=== PATIENT | male | born 1955 | race Caucasian/White ===

== ENCOUNTER → 2019-12-31 | Outpatient (CLI) | payer MEDICAID ==
--- NOTE | 2019-12-31 13:53 | US ---
EXAMINATION TYPE: US thyroid st tissue head/neck DATE OF EXAM: 12/31/2019 COMPARISON: NONE CLINICAL HISTORY: E04.1 Single thyroid nodule. Left thyroid nodule GLAND SIZE: Right Lobe: 5.8 x 2.2 x 1.9 cm Overall Parenchyma: homogenous Left Lobe: 6.5 x 2.0 x 1.7 cm Overall Parenchyma: homogeneous Isthmus Thickness: 0.3 cm NODULES RIGHT: # of nodules measured on right: 0 LEFT: # of nodules measured on left: 1 1. 2.2 X 1.8 x 2.2 cm hypoechoic mixed nodule at the lower pole with well-defined margins; with rob cification. This nodule is wider than tall and shows intranodular vascularity. Prior size: No previous ISTHMUS: # of nodules measured in the isthmus: 0 Bilateral neck scanned, no evidence of lymphadenopathy. IMPRESSION: Thyromegaly with a dominant 2.2 cm left thyroid nodule
== END | disposition home or self-care (01) ==
LOC: RADUSWWP 13:26
PROVIDERS: ATTEND Family Medicine
DX: E04.1 Nontoxic single thyroid nodule (principal)
CPT/HCPCS: 76536

== ENCOUNTER → 2020-01-05 | Outpatient (CLI) | payer MEDICAID | END | disposition home or self-care (01) | LOC: LABWHC1 12:21 | PROVIDERS: ATTEND Internal Medicine Gastroenterology | DX: Z11.59 Encounter for screening for other viral diseases (principal) ==

== ENCOUNTER 2020-01-07 08:16 | Day surgery (SDC) | payer MEDICAID ==
[2020-01-05 10:24] VITALS: BMI 29.8
[~2020-01-07 08:16] MED LIST: LACTATED RINGERS 1,000 ML IV SCH
[2020-01-07 08:49] VITALS: RESP 16; TEMP 97.6
[2020-01-07] MEDS ORDERED: LIDOCAINE 1% (10MG/ML) FOR IV START INTRADERMA ONE (08:50)
[2020-01-07] MEDS ORDERED: PROPOFOL 10 MG/ML 20 ML VIAL IV ONE (09:07)
[2020-01-07] MEDS ORDERED: LIDOCAINE 1% INJ 10MG/ML (20 ML MDV) ONE (09:07)
--- NOTE | 2020-01-07 09:27 | P.PCN ---
Date of Procedure: 01/07/20 Procedure(s) Performed: BRIEF HISTORY: Patient is a 64-year-old pleasant [] scheduled for an elective colonoscopy as a part of screening for colorectal neoplasia. His strong family history of colon cancer diagnosed in his father, paternal uncle and paternal grandfather in his 60s. PROCEDURE PERFORMED: Colonoscopy. PREOPERATIVE DIAGNOSIS: Screening for colon cancer and strong family history of colon cancer. IV sedation per Anesthesia. PROCEDURE: After informed consent was obtained, the patient, was brought into the endoscopy unit. IV sedation was administered by Anesthesia under continuous monitoring. Digital rectal examination was normal. Initially the Olympus CF-160 flexible video colonoscope was then inserted in the rectum, gradually advanced into the cecum without any difficulty. Careful examination was performed as the scope was gradually being withdrawn. Ileocecal valve and the appendiceal orifice were visualized and appeared normal. Prep was excellent. In the cecum there was a 1 cm flat polyp removed by snare polypectomy. In the ascending colon there was a 7 mm flat polyp removed by snare polypectomy. There was a 5 mm descending colon polyp status post polypectomy. Rest of the mucosa of the cecum, ascending colon, transverse colon, descending colon, sigmoid colon, and rectum appeared normal. Retroflexion was performed in the rectum and small internal were seen. The patient tolerated the procedure well. IMPRESSION: 1 cm flat cecal polyp status post polypectomy 7 mm flat ascending colon polyp status post snare polypectomy 5 mm descending colon polyp status post polypectomy Small internal hemorrhoids RECOMMENDATIONS: Findings of this examination were discussed with the patient as well as his family. He was advised to follow with the biopsy results. If the biopsy shows an adenoma he can have a repeat colonoscopy in 3 years.
[2020-01-07 09:56] VITALS: BP 125/63; PULSE 61
== END 2020-01-07 10:21 | disposition home or self-care (01) ==
LOC: ORWHC2ENDO 08:16
PROVIDERS: ATTEND Internal Medicine Gastroenterology
DX: Z12.11 Encounter for screening for malignant neoplasm of colon (principal); D12.0 Benign neoplasm of cecum; D12.2 Benign neoplasm of ascending colon; D12.4 Benign neoplasm of descending colon; K64.8 Other hemorrhoids; Z86.010 Personal history of colon polyps; Z80.0 Family history of malignant neoplasm of digestive organs; H46.9 Unspecified optic neuritis; K21.9 Gastro-esophageal reflux disease without esophagitis; G35 Multiple sclerosis; F41.9 Anxiety disorder, unspecified; F32.9 Major depressive disorder, single episode, unspecified; Z79.899 Other long term (current) drug therapy
CPT/HCPCS: 88305; 45385; J2001; J2704

== ENCOUNTER → 2020-05-27 | Outpatient (CLI) | payer MEDICAID ==
--- NOTE | 2020-05-31 09:27 | MR ---
EXAMINATION TYPE: MR brain/cspine wo/w DATE OF EXAM: 05/27/2020 COMPARISON: Outside MRI brain July 17, 2016. HISTORY: Multiple sclerosis follow-up TECHNIQUE: Multiplanar, multisequence images of the brain and brainstem is performed without and with IV contras t, utilizing 9 mL intravenous Gadavist gadolinium contrast is administered intravenously. Demyelinat ing disease protocol with additional Sagittal Flair sequence performed of the brain and brainstem and PD sagittal sequence cervical spine.. FINDINGS: BRAIN: T2 Lesions Present : Yes Approximate Number of Lesions: Approximately 15 scattered Locations Identified : Scattered, callosal involvement redemonstrated sagittal image 20 Size of Reference Lesion(s): 1. Large contiguous right frontal lesion axial images 23 and 24 and sagittal image 25 measures approx imately 1.3 x 1.3 x 1.3 cm stable from prior. 2. there is 1.0 x 0.8 x 1.3 cm left frontal parietal periventricular lesion axial image 21 and sagitt al image 13 stable from prior Enhancing Lesion(s) Present: No T1 Hypointense Lesion(s) Present: Yes Change from Prior: Stable Diffusion weighted images demonstrate no evidence of a recent infarct or other diffusion abnormality. There is no worrisome extra-axial fluid collection. The ventricular system and cisternal spaces ar e normal in size and appearance. The brain volume is age appropriate. Midline structures demonstrate normal morphology. The craniocervical junction appears within normal limits. Post contrast images demonstrate no abnormal enhancement. The dural venous sinuses appear pa tent. Artifact distortion near level of the globes and nose. Paranasal sinuses grossly clear. IMPRESSION: Moderate white matter changes likely on basis of known multiple sclerosis. No significant interval change. No new or enhancing lesions seen. C-SPINE: FINDINGS: Sagittal images of the cervical spine show the craniocervical junction to appear within nor mal limits. The cervical and upper thoracic spinal cord is normal in caliber and courser. There is f aint T2 hyperintense lesion measuring roughly 10 mm craniocaudal dimension running from superior to m id C4 level through the C4-C5 disc space sagittal image 6. No enhancing lesions are present. Slight g rade 1 anterolisthesis C6 on C7. The vertebral body heights are normal. Mild to moderate disc space narrowing with vacuum disc phenomenon and spurring C6-C7 level. Additional mild/moderate multilevel a nterior spurring mid cervical spine. The bone marrow signal intensity is within normal limits. No karthikeyan picious postcontrast enhancement. Axial images show C2-C3 level to appear within normal limits. Axial images at C3-C4 level shows small broad-based left paracentral disc protrusion mildly effacing the anterior thecal sac along with uncovertebral facet degenerative changes causing asymmetric mild r ight-sided neural foraminal narrowing. Axial images at C4-C5 level show focal right upper central disc protrusion effacing anterior thecal s ac, there are uncovertebral facet degenerative changes causing mild right greater than left bilateral neural foraminal narrowing. Axial images at C5-C6 level shows central disc protrusion effacing the anterior thecal sac, patent bi lateral neural foramina. Axial images at C6-C7 level showed lobulated broad-based posterior disc protrusion effacing the anter ior thecal sac and causing mild bilateral neural foraminal narrowing. Axial images at C7-T1 level show focal right paracentral disc protrusion effacing anterolateral theca l sac, patent bilateral neural foramina. There is abnormal left lateral cord lesion C4-C5 disc space axial image 34 for reference. Lesion deanna ures 3 to 4 mm transversely. IMPRESSION: Cervical spinal cord demyelinating disease involvement is present. No enhancing lesions. Multilevel degenerative changes greatest C6-C7 level as detailed above.
== END | disposition home or self-care (01) ==
LOC: RADMRIMAIN 10:23
PROVIDERS: ATTEND Psychiatry & Neurology Neurology
DX: G35 Multiple sclerosis (principal); G37.8 Other specified demyelinating diseases of central nervous system
CPT/HCPCS: 70553; 72156; A9585

== ENCOUNTER → 2021-11-16 | Outpatient (CLI) | payer MEDICAID ==
--- NOTE | 2021-11-16 16:58 | US ---
EXAMINATION TYPE: US thyroid st tissue head/neck DATE OF EXAM: 11/16/2021 COMPARISON: NONE CLINICAL HISTORY: E04.1 THYROID NODULE. left thyroid nodule GLAND SIZE: Right Lobe: 6.2 x 2.3 x 2.5 cm Overall Parenchyma: homogenous Left Lobe: 6.3 x 2.3 x 2.2 cm Overall Parenchyma: homogeneous Isthmus Thickness: 0.4 cm NODULES RIGHT: # of nodules measured on right: 0 LEFT: # of nodules measured on left: 1 1. 2.5 X 2.0 x 1.9 cm, lower , mixed cystic and solid, isoechoic nodule, which is wider than tall, with smooth margins, with echogenic foci. Prior size: 2.2 x 1.8 x 2.2 cm ISTHMUS: # of nodules measured in the isthmus: 0 Bilateral neck scanned, no evidence of lymphadenopathy. Right lobe of thyroid gland shows homogenous echotexture. IMPRESSION: Mildly suspicious, consider fine-needle aspiration biopsy of left lobe thyroid nodule 2017 ACR TI-RADS LEVEL: TR 3 *Highest TI-RADS level nodule reported
== END | disposition home or self-care (01) ==
LOC: RADUSWWP 16:06
PROVIDERS: ATTEND Otolaryngology
DX: E04.1 Nontoxic single thyroid nodule (principal)
CPT/HCPCS: 76536

== ENCOUNTER 2022-05-12 05:46 | Day surgery (SDC) | payer MEDICAID ==
[2022-05-10 16:09] VITALS: BMI 28.5
[2022-05-12] MEDS ORDERED: DEXAMETHASONE SOD PHOSPHATE 4 MG/ML 1 ML VIAL IV ONE (05:50)
[2022-05-12] MEDS ORDERED: MIDAZOLAM 2 MG/2 ML VIAL IV PRN (05:50)
[2022-05-12] MEDS ORDERED: ONDANSETRON 4 MG/2 ML VIAL IVP ONE (05:50)
[2022-05-12] MEDS ORDERED: LACTATED RINGERS 1,000 ML IV SCH (05:50)
[2022-05-12] MEDS ORDERED: LACTATED RINGERS 1,000 ML IV ONE ×2 (06:33→10:31)
[2022-05-12] MEDS ORDERED: ONDANSETRON 4 MG/2 ML VIAL ONE (06:39)
[2022-05-12] MEDS ORDERED: MIDAZOLAM 2 MG/2 ML VIAL IVP ONE (06:55)
[2022-05-12 06:59] VITALS: RESP 16; TEMP 97.4
[2022-05-12] MEDS ORDERED: HYDROmorphone 0.5 MG/0.5 ML SYRINGE IVP PRN (07:00)
[2022-05-12] MEDS ORDERED: ceFAZolin 1,000 MG in SODIUM CHLORIDE 0.9% 1,000 ML IRRIGATION ONE ×4 (07:28)
[2022-05-12] MEDS ORDERED: PROPOFOL 10 MG/ML 20 ML VIAL IV ONE (07:28)
[2022-05-12] MEDS ORDERED: LIDOCAINE 2% INJ 20 MG/ML (2 ML VIAL) ONE (07:28)
[2022-05-12] MEDS ORDERED: SODIUM CHLORIDE 0.9% (PF) 10 ML VIAL ONE (07:28)
[2022-05-12] MEDS ORDERED: PHENYLEPHRINE-0.9% NACL SYG 1,000 MCG/10 ML SYRINGE ONE (07:28)
[2022-05-12] MEDS ORDERED: fentaNYL (PF) 50 MCG/ML 2 ML AMP ONE (07:28)
[2022-05-12] MEDS ORDERED: ROPIVACAINE 5 MG/ML 30 ML VIAL ONE (07:28)
[2022-05-12] MEDS ORDERED: ePHEDrine 50 MG/ML 1 ML VIAL ONE (07:28)
--- NOTE | 2022-05-12 09:42 | XR ---
Fluoroscopy INDICATION: Pain FINDINGS: Fluoroscopy time: Not Reported seconds. Images obtained: 4. IMPRESSIONS: 1. Documentation of fluoroscopy.
--- NOTE | 2022-05-12 09:54 | FL ---
Fluoroscopy INDICATION: Pain FINDINGS: Fluoroscopy time: 41 seconds. Images obtained: 0. IMPRESSIONS: 1. Documentation of fluoroscopy.
--- NOTE | 2022-05-12 11:01 | P.ANPRN ---
Procedure Note - Anesthesia - Nerve Block Performed Left Adductor Canal Time Out Performed: Yes (06:55) Date of Procedure: 05/12/22 Procedure Start Time: :55 Procedure Stop Time: 07:04 Location of Patient: PreOp Indication: Acute Post-Operative Pain, Requested by Surgeon (Dr Gregorio) Sedation Type: Sedate with meaningful contact maintained Preparation: Sterile Prep Position: Supine Catheter: None Needle Types: Pajunk Needle Gauge: 21 Ultrasound used to visualize needle placement: Yes Ultrasound used to observe medication spread: Yes Injectate: 0.5% Ropivacaine (see comment for volume) (15cc +5cc PF Normal saline) Blood Aspirated: No Pain Paresthesia on Injection Noted: No Resistance on Injection: Normal Image Stored and Saved: Yes Events: Uneventful and Well Tolerated
--- NOTE | 2022-05-12 11:09 | P.ANPRN ---
Procedure Note - Anesthesia - Nerve Block Performed Left Popliteal Time Out Performed: Yes Date of Procedure: 05/12/22 Procedure Start Time: 07:05 Procedure Stop Time: 07:11 Location of Patient: PreOp Indication: Acute Post-Operative Pain, Requested by Surgeon (DR Gregorio) Sedation Type: Sedate with meaningful contact maintained Preparation: Sterile Prep Position: Right Lateral Catheter: None Needle Types: Pajunk Needle Gauge: 21 Ultrasound used to visualize needle placement: Yes Ultrasound used to observe medication spread: Yes Injectate: 0.5% Ropivacaine (see comment for volume) (15cc +5cc PF Normal saline) Blood Aspirated: No Pain Paresthesia on Injection Noted: No Resistance on Injection: Normal Image Stored and Saved: Yes Events: Uneventful and Well Tolerated
[2022-05-12 12:06] VITALS: BP 120/80; PULSE 71
--- NOTE | 2022-05-12 15:31 | P.OP ---
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 The patient was brought into the operating room and placed on table supine position. Timeout was taken to confirm correct patient identifiers, correct laterality of surgery, and correct procedure. When all staff in the room were in agreement with the timeout, the patient was induced placed under general anesthesia. A well-padded tourniquet was placed on the left thigh. A pad was placed underneath the left hip to internally rotate the left leg and then a wedge underneath the left leg elevated. The left leg was then prepped and draped usual manner. The leg was exsanguinated and the tourniquet inflated to 250 mmHg. Attention was directed over the lateral aspect of the ankle where a linear incision was made over the lateral malleolus. The incision was deepened down to the subcutaneous layer careful to identify, avoid, and retract any neurovascular structures and cauterize any bleeding vessels. Dissection then continued down to the periosteum of the lateral malleolus which was incised in the distal tip to an area 2-3 cm proximal to the ankle joint. The soft tissue was reflected anteriorly and posteriorly to expose the lateral malleolus. The syndesmotic ligaments were transected and then the fibula was removed from the surgical field. After removing the lateral malleolus, there was excellent visualization of both the ankle and subtalar joints. Utilizing a 4 mm low-speed rotary bur, the articular surfaces were debrided of any cartilage as well as subchondral bone, until bleeding medullary bone was encountered on all the arthrodesis surfaces. The same bur was then used to aggressively fenestrate all the surfaces to promote bleeding and enhance bone healing. The wounds were then thoroughly irrigated with antibiotic saline. 10 mL of ActiV allograft was placed between the 2 arthrodesis segments. Under fluoroscopic visualization, a guidewire was placed on the plantar surface of the calcaneus. Utilizing the C-arm the direction of the wire was adjusted for both the AP and medial to lateral positioning. The wire was first advanced to the subtalar joint and then the subtalar joint was reduced and that wire advanced to the dome of the talus. Then the ankle was dorsiflexed to 90 and the varus deformity reduced. Fluoroscopy was used to confirm that the foot to ankle alignment was appropriate and then the guidewire was advanced to just into the tibia. AP and lateral views were done with the C-arm, and then the wire was advanced into the medullary canal the tibia. At that 0.10 mL of ActiV allograft was placed between the tibiotalar joint and subtalar joint arthrodesis sites A 2 cm incision was made linearly on the plantar surface of the foot along where the wire was inserted. The tissue was bluntly dissected down to bone. A 7 mm drill bit was inserted over the guidewire and advanced to the tibia. And then a 9 mm drill bit was placed over the wire and advanced until it entered the metaphysis of the tibia. Then flexed hole reamers were inserted across the guidewire utilizing sequential sizing at 0.5 mm intervals until we reached 11 mm and chatter was noted at the end of the reamer. Based on the drilling and measurements, it was determined that a 220 mm x 10 mm nail was in appropriate size. The nail was opened on the back table and then secured to the alignment jig. Then the stretching device was used to engage the compression mechanism within the nail. Once that was completed the dial on the jig was adjusted to 6 mm which indicates a much compressive force would be applied once the stretching mechanism was released. The deep portion of the wound on the heel was thoroughly irrigated and then the nail, attached to the alignment jig, was inserted into the drill hole and into the tibia. It was then impacted to a depth where the most distal screw hole that was oriented medial to lateral was just inferior to the posterior facet of the subtalar joint and that the distal end of the nail was deep to the plantar cortex of the calcaneus. Once that depth was achieved AP and lateral views of the nail were taken to show that there was good alignment of the arthrodesis site and proper placement of the nail Another jig was placed on the posterior aspect of the jig for the posterior to anterior screw through the calcaneus as well as the distal aspect of the nail. The drill was advanced until it was just proximal to the calcaneocuboid joint. Then the screw was inserted and advanced until the head of the screw was deep to the cortex of the calcaneus and that the distal aspect did not breach the calcaneocuboid joint. Next the, the jig was placed for the placement of the lateral to medial screw. Once the drill guide was in place a small stab incisions made to the skin. Then the drill was advanced to the medial cortex of the calcaneus. Then another screw was inserted that went through the most distal hole of the nail and into the medial cortex of the calcaneus. Fluoroscopic imaging confirmed that both screws were in proper position and alignment. The drill guides were placed through holes in the distal aspect of the alignment jig for the placement of the tibial locking screws. The first screw was the proximal screw. The drill guide was inserted and then this small incision made through the skin indicating the entry point of the screw. The drill was inserted until it was bicortical and the tibia. The screw was inserted until it was firmly seated against the tibia. Same process was done with a more proximal locking screw in the nail. Once also locking screws were in place, fluoroscopic imaging was used to check the overall alignment of the ankle as well as the placement of the hardware. The ankle was at 90 and the nail was centered in the medullary canal the tibia. Once we're satisfied with position the stretching mechanism was released allowing compression of the nail. Fluoroscopy was again used onto check the amount of alignment and it showed that there was a protrusion of the plantar side of the nail indicated that it had begun compression. All wounds were thoroughly irrigated with antibiotic saline. Deep closure of the lateral incision was done with 0 Vicryl. Subcu closure of all incisions done with 4-0 Monocryl. And skin closure done with radha. An Arthrex jumpstart dressings were placed over all the incisions. Then a bulky dry dressings applied to the left foot and ankle. The tourniquet was released and capillary refill time return to all digits on the left foot. A bulky Becker dressing was applied. Then a below knee, well-padded, well molded plaster posterior mold/sugar tong splint was placed over the leg. Once the splint was dried, anesthesia was reversed and the patient was taken recovery with vital signs stable.
== END 2022-05-12 12:15 | disposition home or self-care (01) ==
LOC: OR 05:46
PROVIDERS: ATTEND Podiatrist
DX: M19.172 Post-traumatic osteoarthritis, left ankle and foot (principal); G89.18 Other acute postprocedural pain; G35 Multiple sclerosis; Z97.3 Presence of spectacles and contact lenses; Z96.652 Presence of left artificial knee joint; Z98.890 Other specified postprocedural states; Z87.891 Personal history of nicotine dependence; Z79.899 Other long term (current) drug therapy
CPT/HCPCS: 64447; 64445; 76942; 73600; 28725; 27870; C1713; J2250; J1100; J0690 ×2; J2405; J3010; J2795; J2370; J2704; J2001

== ENCOUNTER → 2023-04-03 | Outpatient (CLI) | payer MEDICAID ==
--- NOTE | 2023-04-04 11:59 | MR ---
EXAMINATION TYPE: MR brain/cspine wo/w DATE OF EXAM: 04/03/2023 8:20 PM CLINICAL INDICATION:Male, 67 years old with history of G35 MULTIPLE SCLEROSIS; PHH, Multiple Sclerosi s, Left sided weakness, COMPARISON: 05/27/2020. TECHNIQUE: Multi planar, multi sequence imaging was performed through the brain including: T1, T2, Inversion rec overy, Diffusion weighted imaging, and gradient echo imaging. No gadolinium was given. Multi planar, multi sequence imaging was performed utilizing: T1-weighted, T2-weighted, and turbo inv ersion recovery imaging of the cervical spine. IV Contrast: 10 cc Gadavist FINDINGS: Periventricular white matter changes without abnormal postcontrast enhancement. These are somewhat or thogonal to the lateral ventricles, additional other scattered white matter changes with foci high T2 signal intensity are seen within the periventricular white matter are also present. These are not si gnificantly changed from prior in 2019. Midline structures show no abnormality. Diffusion-weighted im aging shows no evidence of restricted diffusion. The susceptibility weighted images do not reveal any evidence for micro-hemorrhage. No abnormal postcontrast enhancement. The bone marrow signal is within normal limits. Paranasal sinuses and mastoid air cells: No significant paranasal sinus disease. Visualized orbits: Orbital contents are intact. Alignment: The cervical vertebral bodies have preserved heights. Grade 1 anterolisthesis of C6 on C7. Bones: Scattered Modic endplate changes with osteophytes and disc space narrowing. Multilevel degener ative disc disease is noted and most pronounced at the C5-C7 vertebral levels. No abnormal postcontra st enhancement. Cord: The spinal cord is unremarkable with regards to their signal intensity and morphology. No abnor mal postcontrast enhancement. Discs: Multilevel disc desiccation is present. C2-C3: No significant disc pathology. The spinal canal is patent. No neural foraminal stenosis. C3-C4: No significant disc pathology. The spinal canal is patent. Bilateral facet and uncovertebral joint arthropathy are present with mild to moderate right and mild left neural foraminal stenosis. C4-C5: A disc osteophyte complex is present which minimally narrows the ventral subarachnoid space. Bilateral facet and uncovertebral joint arthropathy are present with mild to moderate right and mild left neural foraminal stenosis. C5-C6: A disc osteophyte complex is present which minimally narrows the ventral subarachnoid space. Bilateral facet and uncovertebral joint arthropathy are present with mild to moderate right and mild left neural foraminal stenosis. C6-C7: Grade 1 anterolisthesis with disc uncovering which impresses upon the spinal cord there is mil d spinal canal stenosis. Bilateral facet and uncovertebral joint arthropathy are present with mild t o moderate bilateral neural foraminal stenosis. C7-T1: No significant disc pathology. The spinal canal is patent. No neural foraminal stenosis. Other: None. IMPRESSION: Brain: 1. White matter changes are orthogonal to the lateral ventricles compatible with multiple sclerosis. These are similar to 05/27/2020. Additional other scattered nonspecific white matter changes are als o present. No evidence for restricted diffusion or enhancement to suggest active demyelination. 2. No evidence of intracranial mass or acute/subacute infarct. Cervical spine: 1. No evidence for demyelination within the spinal cord. Spinal cord signal is maintained. No evidenc e for disc herniation or significant spinal canal stenosis. 2. Multilevel disc degeneration with associated osteoarthritic changes.
== END | disposition home or self-care (01) ==
LOC: RADMRIMAIN 17:31
PROVIDERS: ATTEND Psychiatry & Neurology Neurology
DX: G35 Multiple sclerosis (principal); M50.321 Other cervical disc degeneration at C4-C5 level; M47.812 Spondylosis without myelopathy or radiculopathy, cervical region; R90.82 White matter disease, unspecified
CPT/HCPCS: 70553; 72156; A9585

== ENCOUNTER 2023-04-06 05:51 | Day surgery (SDC) | payer MEDICAID ==
[2023-04-05 12:04] VITALS: BMI 29.8
[2023-04-06] MEDS ORDERED: LACTATED RINGERS 1,000 ML IV SCH (05:58)
[2023-04-06] MEDS ORDERED: DEXAMETHASONE SOD PHOSPHATE 4 MG/ML 1 ML VIAL IV ONE (05:58)
[2023-04-06] MEDS ORDERED: ONDANSETRON 4 MG/2 ML VIAL IVP ONE (05:58)
[2023-04-06] MEDS ORDERED: fentaNYL (PF) 50 MCG/ML 2 ML AMP IVP ONE (06:54)
[2023-04-06] MEDS ORDERED: HYDROmorphone 0.5 MG/0.5 ML SYRINGE IVP PRN (07:00)
[2023-04-06] MEDS ORDERED: MIDAZOLAM 2 MG/2 ML VIAL IV PRN (07:00)
[2023-04-06] MEDS ORDERED: SODIUM CHLORIDE 0.9% (PF) 10 ML VIAL ONE (07:25)
[2023-04-06] MEDS ORDERED: ROCURONIUM 10 MG/ML (5 ML VIAL) IV ONE (07:25)
[2023-04-06] MEDS ORDERED: NEOSTIGMINE 1 MG/ML 10 ML VIAL ONE (07:25)
[2023-04-06] MEDS ORDERED: fentaNYL (PF) 50 MCG/ML 2 ML AMP ONE (07:25)
[2023-04-06] MEDS ORDERED: PROPOFOL 10 MG/ML 20 ML VIAL IV ONE (07:25)
[2023-04-06] MEDS ORDERED: SUCCINYLCHOLINE CHLORIDE 200 MG/10 ML VIAL IV ONE (07:25)
[2023-04-06] MEDS ORDERED: GLYCOPYRROLATE 0.2 MG/ML 2 ML VIAL ONE (07:25)
[2023-04-06] MEDS ORDERED: LIDOCAINE 2% INJ 20 MG/ML (2 ML VIAL) ONE (07:25)
[2023-04-06] MEDS ORDERED: MIDAZOLAM 2 MG/2 ML VIAL ONE (07:25)
[2023-04-06] MEDS ORDERED: HYDROmorphone (PF) 1 MG/ML ONE (07:25)
[2023-04-06] MEDS ORDERED: ROPIVACAINE 5 MG/ML 30 ML VIAL ONE (07:25)
[2023-04-06] MEDS ORDERED: ceFAZolin 1,000 MG in SODIUM CHLORIDE 0.9% 1,000 ML IRRIGATION ONE (07:45)
--- NOTE | 2023-04-06 07:50 | P.ANPRN ---
Procedure Note - Anesthesia - Nerve Block Performed Left Adductor Canal Time Out Performed: Yes (06:54) Date of Procedure: 04/06/23 Procedure Start Time: :54 Procedure Stop Time: :58 Location of Patient: PreOp Indication: Acute Post-Operative Pain, Requested by Surgeon (Dr Gregorio) Sedation Type: Sedate with meaningful contact maintained Preparation: Sterile Prep Position: Supine Catheter: None Needle Types: Pajunk Needle Gauge: 21 Ultrasound used to visualize needle placement: Yes Ultrasound used to observe medication spread: Yes Injectate: 0.5% Ropivacaine (see comment for volume) (20cc) Blood Aspirated: No Pain Paresthesia on Injection Noted: No Resistance on Injection: Normal Image Stored and Saved: Yes Events: Uneventful and Well Tolerated
--- NOTE | 2023-04-06 07:52 | P.ANPRN ---
Procedure Note - Anesthesia - Nerve Block Performed Left Popliteal Time Out Performed: Yes Date of Procedure: 04/06/23 Procedure Start Time: 06:59 Procedure Stop Time: 07:03 Location of Patient: PreOp Indication: Acute Post-Operative Pain, Requested by Surgeon (Dr Gregorio) Sedation Type: Sedate with meaningful contact maintained Preparation: Sterile Prep Position: Right Lateral Catheter: None Needle Types: Pajunk Needle Gauge: 21 Ultrasound used to visualize needle placement: Yes Ultrasound used to observe medication spread: Yes Injectate: 0.5% Ropivacaine (see comment for volume) (15cc +5cc PF Normal saline) Blood Aspirated: No Pain Paresthesia on Injection Noted: No Resistance on Injection: Normal Image Stored and Saved: Yes Events: Uneventful and Well Tolerated
[2023-04-06] MEDS ORDERED: LACTATED RINGERS 1,000 ML IV ONE (10:30)
[2023-04-06 11:11] VITALS: TEMP 97.4
--- NOTE | 2023-04-06 11:29 | FL ---
Intraoperative/procedural fluoroscopic services were provided. Total fluoroscopy time is 1.06 seconds with a total of 8 submitted images to PACS. Please see the operative/procedural note for further det ails. DAP: [id number] mGym2
[2023-04-06 11:58] VITALS: RESP 20
[2023-04-06] MEDS ORDERED: IBUPROFEN 600 MG TAB PO ONE (12:24)
[2023-04-06] MEDS ORDERED: IBUPROFEN 800 MG TAB ONE (12:24)
[2023-04-06] MEDS ORDERED: HYDROmorphone 0.5 MG/0.5 ML SYRINGE IVP ONE (12:41)
[2023-04-06 13:09] VITALS: BP 128/70; PULSE 66
--- NOTE | 2023-04-10 08:57 | OP ---
OPERATIVE REPORT DATE OF SERVICE : 04/06/2023 PREOPERATIVE DIAGNOSES: 1. Nonunion of left ankle arthrodesis. 2. Failed internal hardware, left ankle. POSTOPERATIVE DIAGNOSES: 1. Nonunion of left ankle arthrodesis. 2. Failed internal hardware, left ankle. PROCEDURES PERFORMED: 1. Left ankle arthrodesis. 2. Removal of deep hardware, left ankle. ANESTHESIA: General with preoperative nerve block. HEMOSTASIS: Left thigh tourniquet at 250 mmHg. ESTIMATED BLOOD LOSS: 100 mL. MATERIALS: Midline anterior ankle fusion plate with associated screws and midline allograft. INJECTABLES: None. SPECIMENS: None. COMPLICATIONS: None. DESCRIPTION OF PROCEDURE: As follows: Prior to the patient being brought to the operating room, Anesthesia administered nerve block on the left lower extremity. Then, the patient was brought into the operating room, placed on the table supine position. Time-out was taken to confirm correct patient, identifiers, correct laterality of surgery, and correct procedure. Once all staff in the room were in agreement of time-out, the patient was induced, placed under general anesthesia. A well-padded tourniquet was placed in the left thigh, and the left leg was prepped and draped in usual manner. The left leg was exsanguinated and the thigh tourniquet inflated to 250 mmHg. First part of the procedure was removal of the locking screws within the intramedullary nail in the left leg and ankle. The tibial screws were palpable beneath the skin, and incision was made over the location of the screws. Soft tissues were dissected off the head of the screws. The screws were engaged and removed intact without complication. Next was the lateral talar screw where a previous scar was noted. Wire was inserted. An incision was made at the same area and bluntly dissected down to the screw head. The soft tissues were reflected off the screw head and engaged with a screwdriver and removed intact. The last screw was the [id number] screw went through the posterior calcaneus. Fluoroscopy was used to locate the head of the screw, and miguel were made on the skin indicating the location of the head. A small stab incision was made in that area, and then bluntly dissected down to the screw head. The soft tissue was dissected off the screw head. The screwdriver was inserted and engaged with the screw, and the screw was removed part way, so that it was still engaged with the nail to prevent rotation during removal. Next, an incision was made on the plantar aspect of the calcaneus where the entry point of the nail was made in the previous surgery. It was bluntly dissected down to the nail, and then, the soft tissue was dissected off the nail. The removal tool was able to be threaded within the nail, and once that was engaged, the posterior to anterior screw was removed completely and intact. Next, the slide hammer was then used to remove the nail, which was removed intact and without complication. Once that was completed, all the incisions for the removal were thoroughly irrigated. Deep closure and wounds needing it was done with 3-0 Monocryl and skin closure was done with radha. Then, attention was directed over the anterior ankle where in the preoperative area, miguel were made along the tibialis anterior and extensor hallucis longus tendon. The incision plane was made between these two structures. The incision was deepened down to the subcutaneous tissue, careful to identify, avoid, retract any neurovascular structures and cauterize any bleeding vessels. Blunt dissection was continued down to the extensor retinaculum, which was incised between the before mentioned tendons. The tendons were reflected medially and laterally, and blunt dissection was continued down to the ankle joint capsule. A linear incision was made through the capsule, and then bluntly reflected off the talus and the tibia to expose the entirety of the ankle joint. There was no bone healing present. There was fibrotic tissue between the arthrodesis segments. A rongeur and a curette were used to remove the soft tissue to expose the bony surfaces and with the ankle held in the correct position for ankle arthrodesis. A large saw blade was used to create small table cuts through the talus and the tibia, so that they were plain flat for a larger surface area. This also helps remove abnormal bone and expose bleeding medullary bone. Once that was completed, fluoroscopy was used to make sure that there was a flat contact in the AP and lateral views between the talus and the tibia. Once that was satisfactory, a 2 mm drill bit was used to aggressively fenestrate both of the bony surfaces into the medullary canals of the associated bones to promote bleeding, and then, a small osteotome was used to fish scale the bony surfaces. Once that was completed, a Jamshidi needle was used to obtain bone marrow aspirate from the proximal tibia, approximately 10 mL was obtained, and then, this was mixed with 10 mL of bone allograft putty that was mixed on the back table, and once it was thoroughly incorporated that was placed between the arthrodesis segments. Then, in the midline, anterior ankle fusion plate was positioned over the anterior surface of the ankle joint and just under fluoroscopy until it was properly positioned. Once properly positioned, it was temporarily fixated, and then, a large wire was placed across the arthrodesis site to maintain the positioning. The jig for the screws across the arthrodesis site outside of the plate, positioned on the plate, and the first screw was the medial screw, was a large screw that was taken from the medial side of the tibia and crossing through the arthrodesis site and into the calcaneus as the subtalar joint had already been fused from the previous surgery. Next, another guidewire was placed in the lateral aspect of the tibia posterior to the first and that was advanced across the arthrodesis site from the talus and that ended in the talus, and then another screw was placed over the guidewire. Both screws were tightened, and there were good compression and stability across the arthrodesis site. Next, the screws for the talar portion of the plate were inserted. It was a combination of locking and nonlocking screws. Next, the inner compression screw through the plate was done. The drill guide was placed through the appropriate hole. This was passed with a drill bit from distal superior to proximal inferior across the ankle joint, and into the talus and calcaneus. The screw was tightened after it was inserted further in the compression and stability of the fusion. The rest of the screws were placed through the plate with a combination of locking and nonlocking screws. Fluoroscopy was used to check the overall position of the ankle, which was appropriate for an ankle arthrodesis. There was good compression noted across the arthrodesis site on the AP and lateral views. All screws were properly positioned. Then, the wound was thoroughly irrigated with antibiotic saline. The capsule was closed with 0 Vicryl. The retinaculum was repaired with 2-0 Vicryl and subcutaneous closure was done with 4-0 Monocryl. The skin closure was done with radha. Arthrex JumpStart dressings were placed over all the incisions and a bulky dry dressing was applied to the left ankle. The tourniquet was released and capillary refill returned to all digits on the left foot. As of note, during the course of the surgery, the tourniquet time had reached 120 minutes. At that point, a bulky compressive dressing was applied to the left ankle and the tourniquet was released allowing reperfusion for 15 minutes. This was the area of the greatest blood loss during that time. Once the 15 minutes was , the leg was re-exsanguinated with an Esmarch bandage and the tourniquet was reinflated to complete the case. The patient was then placed in a well-padded, well-molded plaster posterior mold/sugar-tong splint. The ankle was held in position until the splint was dried. At that point, the anesthesia was reversed and the patient was taken to the recovery with vital signs stable. MMAMEE / PARISH: [id number] /
== END 2023-04-06 13:46 | disposition home or self-care (01) ==
LOC: OR 05:51
PROVIDERS: ATTEND Podiatrist
DX: T84.197A Other mechanical complication of internal fixation device of bone of left lower leg, initial encounter (principal); G89.18 Other acute postprocedural pain; Z79.899 Other long term (current) drug therapy; Z98.890 Other specified postprocedural states; I10 Essential (primary) hypertension; Z87.891 Personal history of nicotine dependence
CPT/HCPCS: 27870; 20680; 64448; 64450; 73600; J2250; J1100; J0690 ×2; J2405; J3010; J1170; 64445; 64447

== ENCOUNTER → 2023-06-11 | Outpatient (CLI) | payer MEDICAID ==
--- NOTE | 2023-06-12 08:22 | US ---
EXAMINATION TYPE: US thyroid st tissue head/neck DATE OF EXAM: 06/11/2023 COMPARISON: 11/16/21 CLINICAL INDICATION: Male, 67 years old with history of E04.1 Thyroid nodule; GLAND SIZE: Right Lobe: 6.4 x 2.2 x 2.3 cm Overall Parenchyma: homogeneous Left Lobe: 6.9 x 2.1 x 2.2 cm Overall Parenchyma: homogeneous Isthmus Thickness: 0.41 cm NODULES RIGHT: # of nodules measured on right: 0 LEFT: # of nodules measured on left: 1 1. 2.3 X 2.1 x 2.0 cm, lower , solid or almost completely solid, hypoechoic nodule, which is wider than tall, with smooth margins, with echogenic foci. Prior size: 2.5 x 2.0 x 1.9 cm ISTHMUS: # of nodules measured in the isthmus: 0 Bilateral neck scanned, no evidence of lymphadenopathy. IMPRESSION: Stable TR3 nodule. Consider fine-needle aspiration versus continued follow-up.
== END | disposition home or self-care (01) ==
LOC: RADUSWWP 14:52
PROVIDERS: ATTEND Otolaryngology
DX: E04.1 Nontoxic single thyroid nodule (principal)
CPT/HCPCS: 76536

== ENCOUNTER → 2023-06-11 | Outpatient (CLI) | payer MEDICAID ==
--- NOTE | 2023-06-14 09:13 | CT ---
EXAMINATION TYPE: CT ankle LT wo con DATE OF EXAM: 06/11/2023 COMPARISON: Intraoperative fluoroscopy 04/06/2023 HISTORY: 67-year-old male with pain, Left ankle injury with sx over 1 year ago, recently screw broke and new ones were placed in TECHNIQUE: Contiguous axial scanning of the left ankle without IV contrast. Coronal and sagittal alejandra nstructions performed. 3 reconstructions generated on a dedicated independent workstation. CT DLP: 248.30 mGycm Automated exposure control for dose reduction was used. FINDINGS: Large intramedullary defect traversing the tibiotalar and subtalar joints related to prior retrograde intramedullary nail that has been removed. Anterior tibiotalar joint plate and screw fixation remains intact. No hardware fracture is seen. Ther e is severe degenerative change within the [place] tibiotalar joint with small areas of bony ankylosis along the central aspect of the tibiotalar joint. Small areas of bony ankylosis along the mid latera l aspect of the tibiotalar joint as well. The tibial fixation screw tips project just beyond the posterior tibial cortex by about 2 to 3 mm. Two other fixation screws course obliquely posteriorly and inferiorly, the more superior one traversi ng the tibiotalar joint, within the posterior aspect of the body of the talus and into the medial mar gin of the posterior subtalar joint. The more inferior screw enters the anterior talar dome and with the tip projecting up to 1 cm beyond the bone of the medial talar facet. Pronounced degenerative change along the subtalar joint. Small areas of bony bridging anterior aspect of the posterior subtalar joint at the site of previous intramedullary mckinley. Fixation screw that enters the medial aspect of the distal tibial metadiaphysis traverses obliquely d own, directly laterally. It extends across the tibiotalar joint and posterior subtalar joint with the tip having 6 mm of bony purchase within the calcaneus. Fixation screw that enters the lateral aspect of the distal tibial metadiaphysis traverses obliquely down, directed medially. It extends across the tibiotalar joint with the tip projecting 7 mm beyond t he medial talar process into the medial hindfoot soft tissues. Postresection changes of the distal fibula. IMPRESSION: 1. POST TRAUMATIC OA TIBIOTALAR AND SUBTALAR JOINTS WITH EVIDENCE OF PRIOR RETROGRADE INTRAMEDULLARY NAIL REMOVAL. REVISION FIXATION HARDWARE PREDOMINANTLY ACROSS THE TIBIOTALAR JOINT APPEARS INTACT. 2. SMALL AREAS OF BONY ANKYLOSIS ACROSS THE MID CENTRAL TIBIOTALAR JOINT AND MID LATERAL TIBIOTALAR J OINT. ADDITIONAL SMALL AREAS OF BONY ANKYLOSIS ALONG THE ANTERIOR MARGIN OF THE POSTERIOR SUBTALAR TORI INT. LARGE PORTIONS ACROSS BOTH OF THESE JOINTS SHOW INCOMPLETE BONY BRIDGING AT THIS TIME. 3. REGARDING THE ANTERIOR PLATE AND SCREW FIXATION, THE TIBIAL SCREW TIPS PROJECT VARIABLY BEYOND THE POSTERIOR TIBIAL CORTEX BY 2 TO 3 MM. THE SCREW WHICH IS DIRECTED POSTERIORLY AND INFERIORLY ACROSS THE TIBIOTALAR JOINT HAS ITS TIP WITHIN THE MEDIAL MARGIN OF THE POSTERIOR SUBTALAR JOINT. THE MORE I NFERIOR SCREW WHICH IS DIRECTED POSTERIORLY AND INFERIORLY ENTERS THE ANTERIOR TALAR HEAD IN ITS SCRE W TIP PROJECTS 1 CM OUTSIDE THE MEDIAL TALAR FACET INTO THE MEDIAL HINDFOOT SOFT TISSUES. 4. REGARDING THE MEDIAL TIBIAL SCREW, IT TRAVERSES THE TIBIOTALAR JOINT AND POSTERIOR SUBTALAR JOINT BUT ONLY 6 MM OF THE SCREW TIP HAS BONY PURCHASE IN THE CALCANEUS. 5. REGARDING THE LATERAL TIBIAL SCREW, IT TRAVERSES THE TIBIOTALAR JOINT AND THE TIP PROTRUDES BEYOND THE MEDIAL TALAR FACET INTO THE SOFT TISSUES BY 7 MM.
== END | disposition home or self-care (01) ==
LOC: RADCTMAIN 15:27
PROVIDERS: ATTEND Podiatrist
DX: Z48.89 Encounter for other specified surgical aftercare (principal); M19.072 Primary osteoarthritis, left ankle and foot; M96.0 Pseudarthrosis after fusion or arthrodesis; M24.675 Ankylosis, left foot; T84.84XD Pain due to internal orthopedic prosthetic devices, implants and grafts, subsequent encounter; Y79.2 Prosthetic and other implants, materials and accessory orthopedic devices associated with adverse incidents

== ENCOUNTER → 2023-07-09 | Outpatient (CLI) | payer MEDICAID ==
--- NOTE | 2023-07-09 12:15 | CT ---
EXAMINATION TYPE: CT ankle LT wo con DATE OF EXAM: 07/09/2023 COMPARISON: 06/11/2023 HISTORY: LEFT ANKLE FX CT DLP: 305.8 mGycm Automated exposure control for dose reduction was used. Contrast: None Technique: Axial images 2 mm thick sections. Reconstructed images in the coronal and sagittal planes. This exam is compared to 06/11/2023 FINDINGS: Post fixation and arthrodesis changes are stable. Screws transverse the talotibial junction. There is loss of the joint space. Advanced degenerative changes are present at this joint space. No definite osseous fusion identified. There is evidence of prior fixation which has been removed. A Tibial talar screw extends into the proximal calcaneus. No acute fractures identified. Osseous structures appear stable from comparison. IMPRESSION: 1. STABLE APPEARANCE POST OPEN REDUCTION INTERNAL FIXATION WITH ARTHRODESIS AT THE TALOTIBIAL JUNCTIO N. 2. NO ACUTE FRACTURES IDENTIFIED.
== END | disposition home or self-care (01) ==
LOC: RADCTMAIN 08:51
PROVIDERS: ATTEND Podiatrist
DX: M19.072 Primary osteoarthritis, left ankle and foot (principal); T84.84XD Pain due to internal orthopedic prosthetic devices, implants and grafts, subsequent encounter; M96.0 Pseudarthrosis after fusion or arthrodesis; Z48.89 Encounter for other specified surgical aftercare

== ENCOUNTER 2023-07-27 12:44 | Day surgery (SDC) | payer MEDICAID ==
[2023-07-25 11:52] VITALS: BMI 29.2
[2023-07-27] MEDS ORDERED: LACTATED RINGERS 1,000 ML IV ONE (14:18)
[2023-07-27 14:24] VITALS: TEMP 97.6
[2023-07-27] MEDS ORDERED: PROPOFOL 10 MG/ML 20 ML VIAL IV ONE (15:07)
--- NOTE | 2023-07-27 15:29 | P.PCN ---
Date of Procedure: 07/27/23 Procedure(s) Performed: BRIEF HISTORY: Patient is a 67-year-old pleasant white male scheduled for an elective colonoscopy as a part of screening for colon cancer and family history of colon cancer. His father was diagnosed with colon cancer at age 58, grandfather at age 70 and paternal uncle in his 60s. PROCEDURE PERFORMED: Colonoscopy. PREOPERATIVE DIAGNOSIS: Screening for colon cancer/family history of colon cancer. IV sedation per Anesthesia. PROCEDURE: After informed consent was obtained, the patient, was brought into the endoscopy unit. IV sedation was administered by Anesthesia under continuous monitoring. Digital rectal examination was normal. Initially the Olympus CF-160 flexible video colonoscope was then inserted in the rectum, gradually advanced into the cecum without any difficulty. Careful examination was performed as the scope was gradually being withdrawn. Ileocecal valve and the appendiceal orifice were visualized and appeared normal. Prep was excellent. Mucosa of the cecum, ascending colon, transverse colon, descending colon, sigmoid colon, and rectum appeared normal. Retroflexion was performed in the rectum and no lesions were seen. The patient tolerated the procedure well. IMPRESSION: Normal-appearing colon from rectum to cecum with no evidence of colorectal neoplasia . RECOMMENDATIONS: Findings of this examination were discussed with the patient as well as his family. He was advised to have a repeat colonoscopy in every 3 years because of the strong family history of colon cancer.
[2023-07-27 15:58] VITALS: BP 110/70; PULSE 45; RESP 18
== END 2023-07-27 16:10 | disposition home or self-care (01) ==
LOC: ORWHC2ENDO 12:44
PROVIDERS: ATTEND Internal Medicine Gastroenterology
DX: Z12.11 Encounter for screening for malignant neoplasm of colon (principal); I10 Essential (primary) hypertension; G35 Multiple sclerosis; F41.9 Anxiety disorder, unspecified; Z80.0 Family history of malignant neoplasm of digestive organs; Z86.010 Personal history of colon polyps; Z79.899 Other long term (current) drug therapy
CPT/HCPCS: 45378; J2704

== ENCOUNTER → 2023-08-13 | Outpatient (CLI) | payer MEDICAID ==
--- NOTE | 2023-08-13 12:11 | CT ---
EXAMINATION TYPE: CT ankle LT wo con CT DLP: 248.7 mGycm, Automated exposure control for dose reduction was used. DATE OF EXAM: 08/13/2023 11:41 AM COMPARISON: . 07/09/2023. CLINICAL INDICATION:Male, 67 years old with history of LEFT ANKLE; M25.572 PAIN IN LEFT ANKLE AND MARGARITA NTS; [facility], left ankle pain 6 months post-op TECHNIQUE: Axial images were obtained of the CT ankle LT wo con, Additional coronal and sagittal refo rmatted images and soft tissue and bone window were obtained for review. 3-D reconstruction was creat ed on a separate workstation. Contrast used: mL of , (None if empty) Oral contrast used: (None if empty) FINDINGS: Diffuse osseous demineralization throughout the visualized structures. There is fixation asher rdware which appears to have been removed as well as fixation hardware that remains. The fixation tawnya dware that remains present is intact. There is incomplete fusion of the tibiotalar and subtalar joint s. No osseous bridging definitively visualized. No evidence for acute fracture. There is severe degen eration changes of the joints of the hindfoot and midfoot. The distal portion of the fibula is surgic ally absent. IMPRESSION: Similar exam, no significant change from prior, diffuse osseous demineralization with fixation hardwa re present. Fixation hardware appears intact. There is severe arthrosis of the tibiotalar and the sub talar joints. There is minimal osseous fusion of these joints if any.
== END | disposition home or self-care (01) ==
LOC: RADCTMAIN 11:13
PROVIDERS: ATTEND Podiatrist
DX: M19.072 Primary osteoarthritis, left ankle and foot (principal); M25.572 Pain in left ankle and joints of left foot

== ENCOUNTER → 2023-10-05 | Outpatient (CLI) | payer MEDICAID ==
--- NOTE | 2023-10-15 13:59 | EM ---
7 DAY EVENT MONITOR REPORT: INDICATION: Arrhythmia unspecified I49.9, bradycardia R00.1, palpitations R00.2. START DATE: 10/05/2023 END DATE: 10/11/2023 Patient wore the monitor for 5.7 days which is 81% % of total time. FINDINGS: Overall [good] quality study. Patient's baseline rhythm was [normal sinus rhythm]. Baseline heart rate was 70 bpm. Maximum heart rate 129 bpm, minimum heart rate 63 bpm There were no observed atrial fibrillation, atrial flutter or sustained ventricular rhythm. There were no observed sinus pauses which were more than 2 second long. There were intermittent PVCs, PVC couplets which were monomorphic, instances of short run of atrial tachycardia and supraventricular ectopic beats. Patient symptoms correlation: Patient reported symptoms of fluttering sensation which corresponded to supraventricular ectopic beats and heart atrial tachycardia. Patient reported symptom of racing heartbeat at 10/09/2023 5:50 PM corresponded to sinus tachycardia heart rate 113 beats minute. Conclusion Sinus rhythm at baseline. Intermittent supraventricular ectopic beats and ventricular ectopic beats seen with short runs of atrial tachycardia. Patient's symptoms corresponded to PACs and atrial tachycardia. May consider repeating a event monitor which has a capacity of quantifying PACs and PVCs for 48 to 72 hours to see their clinical significance. Gilmar Barrientos MD, FACC, RPVI Thank you for allowing [facility] to participate in this patient's care. Feel free to reach out in case of any followup questions. Please CC this report to Dr. Celestine FLORES
== END | disposition home or self-care (01) ==
LOC: RADECHMAIN 07:17
PROVIDERS: ATTEND Family Medicine
DX: R00.2 Palpitations (principal); I49.1 Atrial premature depolarization; I49.3 Ventricular premature depolarization; I47.19 Other supraventricular tachycardia
CPT/HCPCS: 93270

== ENCOUNTER → 2024-06-13 | Outpatient (CLI) | payer MEDICAID ==
--- NOTE | 2024-06-14 19:02 | MR ---
EXAMINATION TYPE: MR brain/cspine wo/w DATE OF EXAM: 06/13/2024 7:09 PM COMPARISON: 04/03/2023 CLINICAL INDICATION: Male, 68 years old with history of G35 MULTIPLE SCLEROSIS, MS TECHNIQUE: Multiplanar, multisequence imaging of the brain is performed on a 3.0 Vi magnet. Demye linating disease protocol with additional Sagittal Flair sequence is performed. Study is performed wi thin 24 hours of arrival to the hospital. IV Contrast: 10 mL Gadobutrol (None, if empty) FINDINGS: T2 White Matter Lesions Present : Yes Approximate Number of Lesions: Multiple scattered Locations Identified : Periventricular, subcortical, white matter left occipital lobe Size of Largest Lesion(s): 1. 1.2 x 1.1 x 1.9 cm. Location: Left periventricular centrum semiovale Sequence 1502 Image 22 (axia l) and Sequence 1501 Image 102 (sagittal). Stable from comparison 2. 1.3 x 1.7 x 2.2 cm. Location: Right frontal lobe centrum semiovale Sequence 08/03/2001 Image 23 (a xial) and Sequence 08/03/2000 Image 191 (sagittal). Stable from comparison Enhancing Lesion(s) Present: No Change from Prior: Stable Diffusion-weighted imaging is performed. No abnormal hyperintensity is present to suggest an acute i ntracranial infarct or acute ischemic change. Ventricles and sulci are appropriate for the patient age. There are no abnormal extra-axial fluid collections. The ventricular system and cisternal spaces are normal in size and appearance. The brain volume is age appropriate. The craniocervical junction marshall ears within normal limits. The dural venous sinuses appear patent. No abnormal enhancement is present on post contrast images. . The visualized sinuses are clear. Visu alized orbits are unremarkable. IMPRESSION: 1. Multiple white matter changes can be compatible with multiple sclerosis. The large reference lesi ons are stable in size from the comparison study. EXAMINATION TYPE: MR brain/cspine wo/w DATE OF EXAM: 06/13/2024 7:09 PM COMPARISON: 04/03/2023 CLINICAL INDICATION: Male, 68 years old with history of G35 MULTIPLE SCLEROSIS, MS TECHNIQUE: Multiplanar multiecho imaging on a 3.0 Vi magnet is performed through the cervical spin e. IV Contrast: 10 mL Gadobutrol (None, if empty) FINDINGS: The craniovertebral junction is normal. Vertebral body alignment is normal. Spinal cord maintains normal signal throughout its visualized course. No suspicious white matter changes identifi ed. C7-T1: No focal disc herniation or significant disc bulge is evident. No spinal canal stenosis or n eural foraminal stenosis is present. C6-7: Mild broad-based disc bulge is present with mild anterior thecal sac compression. No AP spinal canal stenosis is present. There appears to be some cord contact with mild cord flattening.. C5-6: Broad-based disc bulge is present with mild anterior sac compression. Cord contact is present. Cord flattening may be present. No spinal canal stenosis is present. Neural foramen are patent.. C4-5: There is a right paracentral subligamentous disc herniation with mild anterior thecal sac compr ession. No cord contact or cord deformity evident. No spinal canal stenosis is present. C3-4: There is a small central disc protrusion with mild anterior thecal sac compression. No AP spina l canal stenosis is present. Some subligamentous disc extension may be present. No neural foraminal stenosis is present. C2-3: No focal disc herniation or significant disc bulge is evident. No spinal canal stenosis or eun ral foraminal stenosis is present. IMPRESSION: 1. Subligamentous disc herniation is present C3-4, C4-5, C5-6, C6-7. 2. No suspicious white matter changes within the spinal cord to suggest multiple sclerosis [facility], , 06/14/2024 6:59 PM
== END | disposition home or self-care (01) ==
LOC: RADMRIMAIN 17:36
PROVIDERS: ATTEND Psychiatry & Neurology Neurology
DX: G35 Multiple sclerosis (principal); M50.223 Other cervical disc displacement at C6-C7 level
CPT/HCPCS: 70553; 72156; A9585